=== PATIENT | female | born 1995 | race Two or more races ===

== ENCOUNTER 2017-08-08 09:30 | Inpatient (IN) | payer OTHER ==
[~2017-08-08] VITALS: Ht 160 cm; Wt 2.7 kg
[2017-08-11] MEDS ORDERED: CODE1TAB37 PO (09:09)
== END 2017-08-11 15:29 | DRG 766 ==
LOC: OB/GYN 09:30 → LDR 09:30 → O/R 15:06 → OB/GYN 15:39
PROVIDERS: Obstetrics & Gynecology
PROC: 4A1HXCZ Monitoring of Products of Conception, Cardiac Rate, External Approach (ICD-10-PCS; 2017-08-08)
PROC: 4A033R1 Measurement of Arterial Saturation, Peripheral, Percutaneous Approach (ICD-10-PCS; 2017-08-08)
PROC: 10D00Z1 Extraction of Products of Conception, Low, Open Approach (ICD-10-PCS; principal; 2017-08-08 15:00)
DX: O32.1XX0 Maternal care for breech presentation, not applicable or unspecified (principal); O34.03 Maternal care for unspecified congenital malformation of uterus, third trimester; Z3A.38 38 weeks gestation of pregnancy; Z37.0 Single live birth